=== PATIENT | female | born 1935 | race Caucasian/White ===

== ENCOUNTER 2021-11-09 08:43 | Emergency (ER) | payer OTHER ==
[~2021-11-09] VITALS: Ht 162.5 cm; Wt 59.4 kg
[2021-11-09] MEDS ORDERED: LEXAPRO10 MG PO (09:07)
[2021-11-09] MEDS ORDERED: ARICEPT10 M1 PO (09:07)
[2021-11-09] MEDS ORDERED: OMEPRAZOLE20 M2 PO (09:08)
[2021-11-09] MEDS ORDERED: VITAMIN B-12250 MCG PO (09:08)
[2021-11-09 09:14] LABS: BASO % 0.5 % (0.0-1.0); EOS # 0.2 10*3/uL (0.0-0.4); EOS % 2.9 % (1.0-4.0); HEMATOCRIT 46.1 % (37.0-47.0); LYMPH # 2.7 10*3/uL (1.3-4.4); LYMPH % 43.3 % (27.0-41.0); MEAN CELL VOLUME 94.5 fl (81.0-99.0); MEAN CORPUSCULAR HGB 31.1 pg (27.0-31.0); MEAN PLATELET VOLUME 10.4 fl (9.6-12.3); MONO # 0.4 10*3/uL (0.1-1.0); MONO % 6.9 % (3.0-9.0); NEUT # 2.8 10*3/uL (2.3-7.9); NEUT % 46.1 % (47.0-73.0); PLATELET COUNT AUTOMATED 188 10*3/uL (130-400); RED BLOOD COUNT 4.88 10*6/uL (4.10-5.10); RED CELL DISTRI WIDTH 12.7 % (0-14.5); WHITE BLOOD COUNT 6.1 10*3/uL (4.8-10.8)
[2021-11-09 09:19] LABS: BILIRUBIN Negative (Negative); BLOOD Negative (Negative); CLARITY Clear (Clear); COLOR Yellow (Yellow); GLUCOSE Negative (Negative); KETONE Negative (Negative); LEUKO ESTERASE Negative (Negative); NITRITE Negative (Negative); PH 6.5 (4.5-8.0); SPECIFIC GRAVITY 1.015 (1.001-1.030); UROBILINOGEN 0.2 E.U./dl (0.0-1.0)
[2021-11-09 09:29] LABS: BUN 14 mg/dl (7-24); CHLORIDE 108 mmol/L (98-107); CREATININE 0.79 mg/dL (0.55-1.02); POTASSIUM 3.6 mmol/L (3.5-5.1); SODIUM 143 mmol/L (136-145)
[2021-11-09 09:54] LABS: BACTERIA 2+; EPITHELIAL CELLS 0-2
== END 2021-11-09 13:13 | disposition home or self-care (01) ==
LOC: ED 08:43
PROVIDERS: Emergency Medicine
DX: M79.605 Pain in left leg (principal); Z79.899 Other long term (current) drug therapy; W18.39XA Other fall on same level, initial encounter; Y93.89 Activity, other specified; Y92.89 Other specified places as the place of occurrence of the external cause; Y99.8 Other external cause status

== ENCOUNTER 2021-11-25 18:59 | Emergency (ER) | payer OTHER ==
[~2021-11-25] VITALS: Ht 162.5 cm; Wt 83.9 kg
[~2021-11-25 18:59] MED LIST: ARICEPT10 M1 PO; LEXAPRO10 MG PO; OMEPRAZOLE20 M2 PO; VITAMIN B-12250 MCG PO
== END 2021-11-25 19:56 | disposition home or self-care (01) ==
LOC: ED 18:59
DX: M25.561 Pain in right knee (principal); Z79.899 Other long term (current) drug therapy

== ENCOUNTER 2021-11-29 15:32 | Emergency (ER) | payer OTHER ==
[2021-11-29 18:33] LABS: BILIRUBIN Negative (Negative); BLOOD Trace-Lysed (Negative); CLARITY Clear (Clear); COLOR Yellow (Yellow); GLUCOSE Negative (Negative); KETONE Negative (Negative); LEUKO ESTERASE Negative (Negative); NITRITE Negative (Negative); SPECIFIC GRAVITY <= 1.005 (1.001-1.030); UROBILINOGEN 0.2 E.U./dl (0.0-1.0)
[2021-11-29 18:38] LABS: RBC 0-2 rbc/hpf (0-2); WBC 0-2 wbc/hpf (0-5)
[2021-11-29 18:39] LABS: BACTERIA TRACE
== END 2021-11-29 18:28 | disposition home or self-care (01) ==
LOC: ED 15:32
PROVIDERS: Nurse Practitioner Family
DX: R07.81 Pleurodynia (principal); Z79.899 Other long term (current) drug therapy; W01.0XXA Fall on same level from slipping, tripping and stumbling without subsequent striking against object, initial encounter; Y93.01 Activity, walking, marching and hiking; Y92.128 Other place in nursing home as the place of occurrence of the external cause; Y99.9 Unspecified external cause status

== ENCOUNTER 2023-04-08 06:07 | Emergency (ER) | payer OTHER ==
[~2023-04-08] VITALS: Wt 63.5 kg
[2023-04-08] MEDS ORDERED: VITAMIN D350 MC2 PO (06:23)
[2023-04-08] MEDS ORDERED: TYLENOL325 M2 PO (06:23)
[2023-04-08] MEDS ORDERED: PERCOCET 5-3251 EACH PO ×3 (07:53→08:08)
[2023-04-09] MEDS ORDERED: ESCITALOPRAM OX20 MG PO (18:34)
== END 2023-04-08 08:23 | disposition home or self-care (01) ==
LOC: ED 06:07
DX: S52.571A Other intraarticular fracture of lower end of right radius, initial encounter for closed fracture (principal); S52.621A Torus fracture of lower end of right ulna, initial encounter for closed fracture; S09.90XA Unspecified injury of head, initial encounter; F03.90 Unspecified dementia, unspecified severity, without behavioral disturbance, psychotic disturbance, mood disturbance, and anxiety; Z79.899 Other long term (current) drug therapy; W01.0XXA Fall on same level from slipping, tripping and stumbling without subsequent striking against object, initial encounter; Y93.89 Activity, other specified; Y92.128 Other place in nursing home as the place of occurrence of the external cause; Y99.8 Other external cause status

== ENCOUNTER 2023-04-09 18:07 | Emergency (ER) | payer OTHER ==
[~2023-04-09] VITALS: Wt 63.2 kg
[~2023-04-09 18:07] MED LIST changes: +PERCOCET 5-3251 EACH PO; +TYLENOL325 M2 PO; +VITAMIN D350 MC2 PO
[2023-04-09] MEDS ORDERED: ESCITALOPRAM OX20 MG PO (18:34)
== END 2023-04-09 18:52 | disposition home or self-care (01) ==
LOC: ED 18:07
DX: S62.101A Fracture of unspecified carpal bone, right wrist, initial encounter for closed fracture (principal); F03.90 Unspecified dementia, unspecified severity, without behavioral disturbance, psychotic disturbance, mood disturbance, and anxiety; I10 Essential (primary) hypertension; F41.9 Anxiety disorder, unspecified; W19.XXXA Unspecified fall, initial encounter; Y93.89 Activity, other specified; Y92.89 Other specified places as the place of occurrence of the external cause; Y99.8 Other external cause status

== ENCOUNTER → 2023-05-01 | Outpatient (CLI) | payer OTHER ==
[~2023-05-01] MED LIST changes: +ESCITALOPRAM OX20 MG PO
== END | disposition home or self-care (01) ==
LOC: ORTHO 01:55
PROVIDERS: ATTEND Orthopaedic Surgery
DX: S52.531D Colles' fracture of right radius, subsequent encounter for closed fracture with routine healing (principal); X58.XXXD Exposure to other specified factors, subsequent encounter

== ENCOUNTER 2024-06-17 23:38 | Emergency (ER) | payer OTHER ==
[~2024-06-17] VITALS: Ht 167.6 cm; Wt 77.1 kg
[2024-06-18 00:41] LABS: BILIRUBIN Negative (Negative); BLOOD 2+ (Negative); CLARITY Clear (Clear); COLOR Yellow (Yellow); GLUCOSE Negative (Negative); KETONE Negative (Negative); LEUKO ESTERASE Trace (Negative); NITRITE Negative (Negative); PH 5.5 (4.5-8.0); UROBILINOGEN 0.2 E.U./dl (0.0-1.0)
[2024-06-18 00:41] LABS: BASO % 0.4 % (0.0-1.0); EOS # 0.2 10*3/uL (0.0-0.4); EOS % 1.6 % (1.0-4.0); HEMATOCRIT 42.4 % (37.0-47.0); MEAN CELL VOLUME 94.6 fl (81.0-99.0); MEAN CORPUSCULAR HGB CONC 32.8 g/dl (33.0-37.0); MEAN PLATELET VOLUME 9.8 fl (9.6-12.3); MONO # 1.3 10*3/uL (0.1-1.0); MONO % 12.2 % (3.0-9.0); NEUT % 68.3 % (47.0-73.0); PLATELET COUNT AUTOMATED 222 10*3/uL (130-400); RED BLOOD COUNT 4.48 10*6/uL (4.10-5.10); RED CELL DISTRI WIDTH 12.8 % (0-14.5); WHITE BLOOD COUNT 10.3 10*3/uL (4.8-10.8)
[2024-06-18 00:59] LABS: BUN 9 mg/dl (9-23); CHLORIDE 105 mmol/L (98-107); POTASSIUM 3.6 mmol/L (3.4-5.1)
[2024-06-18 01:08] LABS: BACTERIA 1+; MUCOUS 1+
[2024-06-18] MEDS ORDERED: DOXYCYCLINE HY100 M3 PO (02:51)
[2024-06-18] MEDS ORDERED: BENZONATATE100 M1 PO (02:51)
[2024-06-18] MEDS ORDERED: BENZONATATE 100 MG CAP PO ONE (02:55)
[2024-06-18] MEDS ORDERED: Doxycycline Hyclate 100 MG CAP PO ONE (02:55)
== END 2024-06-18 02:49 ==
LOC: ED 23:38
PROVIDERS: Emergency Medicine
DX: J40 Bronchitis, not specified as acute or chronic (principal); Z20.822 Contact with and (suspected) exposure to COVID-19; F03.90 Unspecified dementia, unspecified severity, without behavioral disturbance, psychotic disturbance, mood disturbance, and anxiety; I10 Essential (primary) hypertension; F41.9 Anxiety disorder, unspecified; M19.90 Unspecified osteoarthritis, unspecified site; Z79.899 Other long term (current) drug therapy

== ENCOUNTER 2025-05-24 17:58 | Emergency (ER) | payer OTHER ==
[~2025-05-24] VITALS: Ht 165.1 cm; Wt 54.4 kg
[~2025-05-24 17:58] MED LIST changes: +BENZONATATE100 M1 PO; +DOXYCYCLINE HY100 M3 PO
== END 2025-05-24 18:40 | disposition home or self-care (01) ==
LOC: ED 17:58
DX: S09.90XA Unspecified injury of head, initial encounter (principal); Z66 Do not resuscitate; F03.90 Unspecified dementia, unspecified severity, without behavioral disturbance, psychotic disturbance, mood disturbance, and anxiety; F41.9 Anxiety disorder, unspecified; I10 Essential (primary) hypertension; G47.00 Insomnia, unspecified; M19.90 Unspecified osteoarthritis, unspecified site; W19.XXXA Unspecified fall, initial encounter; Y93.89 Activity, other specified; Y92.89 Other specified places as the place of occurrence of the external cause; Y99.8 Other external cause status